=== PATIENT | female | born 1975 | race Caucasian/White ===

== ENCOUNTER → 2020-01-13 | Outpatient (CLI) | payer MEDICAID ==
[~2020-01-13] MED LIST: DOCU100T PO; HYDR25SU7 RC
== END | disposition home or self-care (01) ==
LOC: LAB 08:45
PROVIDERS: ATTEND Specialist
DX: Z01.818 Encounter for other preprocedural examination (principal); Z11.59 Encounter for screening for other viral diseases
CPT/HCPCS: U0003-CS

== ENCOUNTER 2020-01-16 10:30 | Day surgery (SDC) | payer MEDICAID ==
[~2020-01-16] VITALS: Ht 160 cm; Wt 68.0 kg
[2020-01-16 11:21] LABS: UCG SCREEN NEGATIVE
[2020-01-16] MEDS ORDERED: PROPOFOL 200MG/20ML VIAL IV ONE (11:44)
[2020-01-16] MEDS ORDERED: CEFAZOLIN SODIUM 1000MG/VIAL ONE (11:44)
[2020-01-16] MEDS ORDERED: FENTANYL CITRATE/PF 50MCG/ML 2ML VIAL ONE (11:44)
[2020-01-16] MEDS ORDERED: ONDANSETRON HCL 4MG/2ML INJ ONE (11:44)
[2020-01-16] MEDS ORDERED: GLYCOPYRROLATE 0.2 MG/ML 2ML VIAL ONE (11:44)
[2020-01-16] MEDS ORDERED: NEOSTIGMINE METHYLSULFATE 1MG/ML 10 ML VIAL ONE (11:44)
[2020-01-16] MEDS ORDERED: METOCLOPRAMIDE HCL 10MG/2ML VIAL ONE (11:44)
[2020-01-16] MEDS ORDERED: LIDOCAINE HCL/PF 1% 10 MG/ML 5ML VIAL ONE (11:44)
[2020-01-16] MEDS ORDERED: MIDAZOLAM HCL 2 MG/2 ML VIAL ONE (11:44)
[2020-01-16] MEDS ORDERED: ROCURONIUM BROMIDE 10MG/ML VIAL 5ML IV ONE (11:44)
[2020-01-16] MEDS ORDERED: SODIUM CHLORIDE 0.9% 10ML VIAL ONE (11:44)
[2020-01-16] MEDS ORDERED: SUCCINYLCHOLINE CHLORIDE 200MG/10ML IV ONE (11:44)
[2020-01-16] MEDS ORDERED: LIDOCAINE HCL 1% 20ML VIAL (Pyxis) INJ ONE (12:11)
[2020-01-16] MEDS ORDERED: BUPIVACAINE HCL/PF 0.5% (5MG/ML) 10ML ONE (12:11)
[2020-01-16] MEDS ORDERED: BACITRACIN 50,000 UNITS/VIAL ONE (12:12)
[2020-01-16] MEDS ORDERED: SODIUM CHLORIDE 0.9% 1,000 ML IV ONE (12:35)
[2020-01-16] MEDS ORDERED: ONDANSETRON HCL 4MG/2ML INJ IV PRN (12:45)
[2020-01-16] MEDS ORDERED: MEPERIDINE HCL/PF 25MG/ML CPJ IV PRN (12:45)
[2020-01-16] MEDS ORDERED: MORPHINE SULFATE 2 MG/ML CPJ (NOT FOR IM USE) IV PRN (12:45)
[2020-01-16] MEDS ORDERED: LACTATED RINGERS 1,000 ML IV SCH (13:00)
[2020-01-16] MEDS: HYDROMORPHONE HCL/PF 2MG/ML CPJ IV PRN ×3 (13:06→14:06)
[2020-01-16] MEDS ORDERED: DOCU100T PO (14:25)
[2020-01-16] MEDS ORDERED: HYDR25SU7 RC (14:25)
[2020-01-16] MEDS ORDERED: HYDROCODONE/ACETAMINOPHEN 5/325MG TABLET PO NR (14:30)
[2020-01-16 15:19] VITALS: BP 115/76
== END 2020-01-16 16:50 | disposition home or self-care (01) ==
LOC: OR 10:30
PROVIDERS: ATTEND Specialist
DX: K64.4 Residual hemorrhoidal skin tags (principal); Z79.899 Other long term (current) drug therapy; Z98.890 Other specified postprocedural states
CPT/HCPCS: 46255; 81025; 88304; J0330; J0690; J1170; J2250; J2405; J2704; J2710; J2765; J3010; J3490